=== PATIENT | female | born 1945 | race Caucasian/White ===

== ENCOUNTER 2022-06-07 09:10 | Emergency (ER) | payer MEDICARE ==
[2022-06-07 09:33] VITALS: BP 144/82; PULSE 89; RESP 18; TEMP 99; BMI 34.5
== END 2022-06-07 10:45 | disposition home or self-care (01) ==
LOC: FER 09:10
DX: B34.9 Viral infection, unspecified (principal)
CPT/HCPCS: 0241U-QW; 99283-25

== ENCOUNTER 2022-09-10 04:25 | Day surgery (SDC) | payer MEDICARE, OTHER ==
[2022-09-08 15:15] VITALS: BMI 35.3
[2022-09-10 11:33] VITALS: TEMP 97.1
[2022-09-10 12:02] VITALS: PULSE 62
[2022-09-10 12:28] VITALS: BP 115/59; RESP 14
== END 2022-09-10 12:29 | disposition home or self-care (01) ==
LOC: JASU-ENDO 04:25
PROVIDERS: ATTEND Internal Medicine Gastroenterology
PROC: 0DBL8ZX Excision of Transverse Colon, Via Natural or Artificial Opening Endoscopic, Diagnostic (ICD-10-PCS; principal; 2022-09-10 11:00)
DX: Z12.11 Encounter for screening for malignant neoplasm of colon (principal); K57.30 Diverticulosis of large intestine without perforation or abscess without bleeding; K64.8 Other hemorrhoids; D12.3 Benign neoplasm of transverse colon
CPT/HCPCS: 88305-TC